=== PATIENT | female | born 1990 | race Asian ===

== ENCOUNTER 2019-12-23 09:58 | Inpatient (IN) | payer BC ==
[2019-12-25] MEDS ORDERED: EPHEDRINE 25 MG/5 ML SYRINGE ONE (11:33)
[2019-12-25] MEDS ORDERED: Lidocaine 2% MPF 10 ML AMP (For Epidural Use) ONE (11:33)
[2019-12-25] MEDS ORDERED: Bupivacaine PF 0.5% 30 ML VIAL ONE (11:33)
[2019-12-25] MEDS: Lactated Ringer's 1,000 ML IV SCH (20:17)
[2019-12-25 20:25] VITALS: BMI 35.3
[2019-12-25] MEDS ORDERED: Ibuprofen 800 MG TAB PO PRN (21:07)
[2019-12-25] MEDS ORDERED: Methylergonovine 0.2 MG/ML VIAL IM PRN (21:07)
[2019-12-25] MEDS ORDERED: Promethazine HCl 25 MG/ML VIAL IM PRN (21:07)
[2019-12-25] MEDS ORDERED: Carboprost 250 MCG/ML AMP IM PRN (21:07)
[2019-12-25] MEDS ORDERED: Ondansetron PF 4 MG/2 ML Vial IVP PRN (21:07)
[2019-12-25] MEDS ORDERED: Acetaminophen 500 MG TAB PO PRN (21:07)
[2019-12-25] MEDS ORDERED: NS / Oxytocin 40 units/1000ml 1,000 ML IV PRN (21:07)
[2019-12-25] MEDS ORDERED: Misoprostol 200 MCG TAB PR PRN (21:07)
[2019-12-25] MEDS ORDERED: Butorphanol Tartrate 1 MG/ML VIAL SLOW IVP PRN (21:07)
[2019-12-25] MEDS ORDERED: HYDROcodone/Acetaminophen 5/325 mg Tablet PO PRN (21:07)
[2019-12-25] MEDS ORDERED: Lidocaine 1% (PF) 30 ML VIAL SC PRN (21:07)
[2019-12-25] MEDS ORDERED: Diphenoxylate HCl/Atropine Tablet PO PRN (21:07)
[2019-12-25] MEDS ORDERED: hydrALAZINE 20 MG/ML VIAL SLOW IVP PRN (21:07)
[2019-12-25] MEDS ORDERED: Misoprostol 100 MCG TAB PO SCH (21:15)
[2019-12-25] MEDS ORDERED: NS w/ Oxytocin 10 units 500 ML IV SCH (21:15)
[2019-12-25 21:19] LABS: Hemoglobin 12.4 g/dL (12.0-16.0); Mean Corpuscular Hemoglobin 33.3 pg (27.0-31.0); Mean Platelet Volume 10.4 fL (7.4-10.4); Platelet Count 135 thou/uL (130-400); RBC Distribution Width 12.3 % (11.5-14.5); Red Blood Cell (RBC) Count 3.72 mill/uL (4.20-5.40); White Blood Cell (WBC) Count 10.5 thou/uL (4.8-10.8)
[2019-12-25 21:46] LABS: Syphilis Antibody Nonreactive (Nonreactive); Syphilis Antibody Index 0.02 S/CO (<1.00 Non-Reactive)
[2019-12-25] MEDS: Misoprostol 100 MCG TAB PO SCH (21:52)
[2019-12-25 22:06] LABS: HBSAg Index 0.42 S/CO (0-0.99); Hep B Surf Ag Non-Reactive S/CO (NonReactive)
[2019-12-26] MEDS: Lactated Ringer's 1,000 ML IV SCH ×4 (00:28→19:51)
[2019-12-26] MEDS: Misoprostol 100 MCG TAB PO SCH ×3 (01:20→09:51)
[2019-12-26] MEDS ORDERED: Fentanyl 4 mcg/Bup 0.1% Cadd 100 ML ONE ×2 (08:29→17:14)
[2019-12-26] MEDS ORDERED: Lactated Ringer's 500 ML IV PRN (09:38)
[2019-12-26] MEDS ORDERED: diphenhydrAMINE 50 MG/ML VIAL IVP PRN (09:38)
[2019-12-26] MEDS ORDERED: EPHEDRINE 25 MG/5 ML SYRINGE SLOW IVP PRN (09:38)
[2019-12-26] MEDS ORDERED: Naloxone HCl 0.4 mg/ml Vial IVP PRN ×2 (09:38)
[2019-12-26] MEDS ORDERED: Acetaminophen 325 MG TAB PO PRN (09:38)
[2019-12-26] MEDS ORDERED: Ondansetron PF 4 MG/2 ML Vial IVP PRN (09:38)
[2019-12-26] MEDS ORDERED: Promethazine HCl 25 MG/ML VIAL IM PRN (09:38)
[2019-12-26] MEDS ORDERED: Fentanyl 4 mcg/Bupivacaine 0.1% Cassette 100 ML EPIDURAL SCH (09:45)
[2019-12-26] MEDS ORDERED: Communication Order-Pharmacy FS SCH (09:45)
--- NOTE | 2019-12-26 13:53 | PDOC.LDHP ---
Labor and Delivery H&P Chief complaint: scheduled induction HPI: 29yo at 40w for elective IOL. s/p cytotec x 4. Some mild cramping. Good FM. Current gestational age (weeks): 40 Due date: 12/23/19 Dating criteria: last menstrual period Grav: 1 Para: 0 Current complications: none Abnormal US findings: No Past Medical History: denies Current medications: pre- vitamins Previous surgical history: none Allergies/Adverse Reactions: Allergies Allergy/AdvReac Type Severity Reaction Status Date / Time No Known Allergies Allergy Verified 12/25/19 21:31 Social history: other - Physical Exam Vital signs reviewed and normal: yes General: NAD Heart: RRR Lungs: CTAB Abdomen: gravid Extremeties: no edema FHT: category 1 [place] contractions every: 4min - Vaginal Exam cm dilated: 1 Effacement: 50% Station: -2 (cook balloon placed 80/80) - OB Labs Blood type: O RH: positive Antibody Screen: negative HIV: negative RPR: negative HEPSAg: negative 1 hour GCT: negative GBS: negative Urine drug screen: negative Rubella: immune - Assessment L&D Assessment: elective induction at term - Plan Plan: admit to L&D, cervical ripening, labor augmentation if indicated, informed consent obtained, anesthesia consult for pain management
--- NOTE | 2019-12-26 15:44 | PDOC.LDPN ---
Labor & Delivery Progress Note - Subjective Subjective: comfortable - Objective Vital signs reviewed and normal: yes General: NAD Uterine fundus: non tender Dilation: 4 Effacement: 50% Station: -2 FHT: category 1 [place] contractions every: 3min AROM: clear fluid Plan: pitocin for augmentation
[2019-12-27] MEDS ORDERED: Fentanyl 4 mcg/Bup 0.1% Cadd 100 ML ONE (01:29)
[2019-12-27] MEDS: Lactated Ringer's 1,000 ML IV SCH ×2 (03:54→19:30)
[2019-12-27] MEDS ORDERED: MORPHINE 5 MG/10 ML PF VIAL ONE (09:12)
[2019-12-27] MEDS ORDERED: Ondansetron PF 4 MG/2 ML Vial ONE (09:12)
[2019-12-27] MEDS ORDERED: Oxytocin 10 UNITS/ML VIAL ONE ×2 (09:12→10:17)
--- NOTE | 2019-12-27 09:17 | PDOC.LDPN ---
Labor & Delivery Progress Note - Subjective Subjective: comfortable - Objective Vital signs reviewed and normal: yes Abnormal vital signs: maternal tachycardia 120 General: NAD Uterine fundus: non tender Dilation: 5 Effacement: 50% Station: -2 FHT: category 2, absent or minimal variables [place] contractions every: 7min Resuscitative measures: maternal oxygen, maternal IV fluids -: Patient has not progressed much since cook balloon out and arom at approx 1700 yesterday despite adequate contractions. heart rate with min btbv however no repetitive decels and responding to D5 infusion with maternal oxygen. Dispo for PCS for arrest of dilation, NRFHT. Maternal temp 101.3 just now, will start triple antibiotics.
[2019-12-27] MEDS ORDERED: Azithromycin 500 MG VIAL ONE (09:20)
[2019-12-27] MEDS ORDERED: Bicitra 30 ML UDCUP PO SCH (09:30)
[2019-12-27] MEDS ORDERED: Azithromycin 500 MG in Sodium Chloride 0.9% 250 ML 250 ML IVPB SCH (09:30)
[2019-12-27] MEDS ORDERED: CEFAZOLIN 2 GM in Premix Bag 1 BAG IVPB SCH (09:30)
[2019-12-27] MEDS ORDERED: PHENYLEPHRINE-NS 100 MCG/ML 10 ML SYRINGE ONE (09:44)
[2019-12-27 10:08] LABS: Actual Bicarbonate (HCO3v) 21 mEq/L (22-28); Base Excess -5.2 mEq/L (-2.0 to +3.0); pH (Cord, venous) 7.31 (7.32-7.43)
[2019-12-27 10:14] LABS: Actual Bicarbonate (HCO3a) 21.4 mEq/L (22-28); Base Excess (BEa) -5.4 mEq/L (-2.0 to +3.0)
--- NOTE | 2019-12-27 10:23 | PDOC.OPDEL ---
OB Operative/Delivery Note Delivery Dr/Surgeon: Chapin Assist: Álvaro Pre-Delivery Diagnosis: arrest of dilation, non-reassuring tracing Procedure/Post Delivery Dx: primary low transverse CS Weeks gestation: 40 Anesthesia: epidural - Findings A Sex: female Weight: 6 lb 14 oz - 1 min: 9 - 5 min: 9 - Additional Findings/Plan Placenta delivered: spontaneous findings: low transverse hysterotomy without extension, normal uterus, normal tubes, normal ovaries Estimated blood loss: 600cc Compilations/Other Findings: NC x 1 Post delivery plan: routine recovery
[2019-12-27] MEDS ORDERED: L&D-Morphine 4 MG/ML VIAL SLOW IVP PRN (10:29)
[2019-12-27] MEDS ORDERED: HYDROmorphone 2 MG/ML VIAL SLOW IVP PRN (10:29)
[2019-12-27] MEDS ORDERED: Promethazine HCl 25 MG SUPP PR PRN (10:29)
[2019-12-27] MEDS ORDERED: diphenhydrAMINE 50 MG/ML VIAL IVP PRN (10:29)
[2019-12-27] MEDS ORDERED: Naloxone HCl 0.4 mg/ml Vial IVP PRN ×2 (10:29)
[2019-12-27] MEDS ORDERED: Meperidine HCl/PF 25 MG/ML VIAL SLOW IVP PRN (10:29)
[2019-12-27] MEDS ORDERED: Ondansetron HCl/PF 4 MG/2 ML Vial IVP PRN (10:29)
[2019-12-27] MEDS ORDERED: Naloxone HCl 0.4 mg/ml Vial IV PRN (10:29)
[2019-12-27] MEDS ORDERED: Ondansetron PF 4 MG/2 ML Vial IVP PRN ×2 (10:29→12:16)
[2019-12-27] MEDS ORDERED: Promethazine HCl 25 MG/ML VIAL IM PRN ×2 (10:29→12:16)
[2019-12-27] MEDS ORDERED: Communication Order-Pharmacy FS SCH (10:30)
[2019-12-27] MEDS ORDERED: Ketorolac Tromethamine 30 MG/ML VIAL IVP SCH (10:30)
--- NOTE | 2019-12-27 11:38 | OP ---
DATE OF PROCEDURE: 12/27/2019 ADDENDUM: I was present and scrubbed to assist the uncomplicated primary low-transverse with Dr. Anni Samson. Please see her note for full details. Job ID: [id number]
[2019-12-27] MEDS ORDERED: Ketorolac Tromethamine 30 MG/ML VIAL ONE (11:56)
[2019-12-27] MEDS ORDERED: Ampicillin 2 GM in Sodium Chloride 0.9% 100 ML IVPB SCH (12:00)
[2019-12-27] MEDS ORDERED: HYDROcodone/Acetaminophen 5/325 mg Tablet PO PRN (12:16)
[2019-12-27] MEDS ORDERED: hydrALAZINE 20 MG/ML VIAL SLOW IVP PRN (12:16)
[2019-12-27] MEDS ORDERED: Acetaminophen 325 MG TAB PO PRN (12:16)
[2019-12-27] MEDS ORDERED: Adacel (T-DAP) 0.5 ML SYRINGE IM ONE (12:16)
[2019-12-27] MEDS ORDERED: Simethicone Chewable 80 MG TAB PO PRN (12:16)
[2019-12-27] MEDS ORDERED: Bisacodyl 10 MG SUPP PR PRN (12:16)
[2019-12-27] MEDS ORDERED: Gentamicin Sulfate 300 MG in Sodium Chloride 0.9% 100 ML IVPB SCH (13:00)
[2019-12-27] MEDS ORDERED: NS / Oxytocin 40 units/1000ml 1,000 ML ONE (13:44)
[2019-12-27] MEDS: Clindamycin/D5W 900 MG in Premix Bag 1 BAG IVPB SCH ×2 (13:52→22:00)
[2019-12-27] MEDS: Lanolin Ointment 7 GM TUBE TOP PRN (13:58)
[2019-12-27] MEDS: Ibuprofen 800 MG TAB PO SCH ×2 (14:24→22:00)
[2019-12-27] MEDS: Misoprostol 100 MCG TAB PO SCH (14:25)
[2019-12-27] MEDS: Gentamicin Sulfate 300 MG in Sodium Chloride 0.9% 100 ML IVPB SCH (15:08)
[2019-12-27] MEDS: Ampicillin 2 GM in Sodium Chloride 0.9% 100 ML IVPB SCH ×2 (16:30→22:00)
[2019-12-27] MEDS ORDERED: Lactated Ringer's 1,000 ML IV SCH (17:30)
[2019-12-27 17:35] LABS: Hemoglobin 10.9 g/dL (12.0-16.0)
[2019-12-27] MEDS: Ketorolac Tromethamine 30 MG/ML VIAL IVP PRN (21:58)
[2019-12-27] MEDS: Docusate Calcium (SURFAK) 240 MG CAP PO SCH (21:59)
[2019-12-27] MEDS: Ferrous Sulfate 325 MG TAB PO SCH (21:59)
[2019-12-28] MEDS: Clindamycin/D5W 900 MG in Premix Bag 1 BAG IVPB SCH ×3 (04:11→21:48)
[2019-12-28] MEDS: Lactated Ringer's 1,000 ML IV SCH ×2 (04:11→11:23)
[2019-12-28] MEDS: Ampicillin 2 GM in Sodium Chloride 0.9% 100 ML IVPB SCH ×4 (04:11→23:15)
[2019-12-28] MEDS: Ketorolac Tromethamine 30 MG/ML VIAL IVP PRN (04:12)
[2019-12-28] MEDS: Ibuprofen 800 MG TAB PO SCH ×3 (04:13→20:00)
[2019-12-28 05:51] LABS: Hemoglobin 10.2 g/dL (12.0-16.0); Mean Corpuscular HGB CONC 32.5 g/dL (32.0-36.0); Mean Corpuscular Hemoglobin 31.6 pg (27.0-31.0); Mean Corpuscular Volume 97.2 fL (78.0-98.0); Mean Platelet Volume 10.4 fL (7.4-10.4); Platelet Count 118 thou/uL (130-400); RBC Distribution Width 12.5 % (11.5-14.5); Red Blood Cell (RBC) Count 3.22 mill/uL (4.20-5.40); White Blood Cell (WBC) Count 19.1 thou/uL (4.8-10.8)
[2019-12-28] MEDS ORDERED: Sodium Chloride 0.9% 10 ML ONE (06:21)
[2019-12-28] MEDS: Ferrous Sulfate 325 MG TAB PO SCH ×2 (08:36→23:19)
[2019-12-28] MEDS: HYDROcodone/Acetaminophen 5/325 mg Tablet PO PRN ×2 (08:47→15:05)
[2019-12-28] MEDS: Docusate Calcium (SURFAK) 240 MG CAP PO SCH ×2 (08:47→20:00)
[2019-12-28] MEDS: Prenatal Vitamin 1 TAB PO SCH (08:47)
--- NOTE | 2019-12-28 12:47 | PDOC.PP ---
Post Progress Note Post Day #: 1 PO intake tolerated: yes Flatus: yes Ambulation: yes Vital Signs (12 hours) Temp Pulse Resp BP Pulse Ox 12/28/19 11:32 98.1 F 110 H 20 107/61 97 12/28/19 07:45 95 12/28/19 07:33 98.9 F 99 20 99/65 95 12/28/19 04:00 98.6 F 105 H 18 99/58 L Weight Weight 181 lb - Physical Examination General: NAD Respiratory: non-labored breathing Abdominal: no distention, appropriately TTP Fundus firm & at: umb Skin: no rash Neurological: no gross focal deficits Psychiatric: normal affect Result Diagrams: 12/28/19 05:10 Additional Labs: Post Labs Blood Type O POSITIVE 12/25/19 21:34 Hep Bs Antigen Non-Reactive S/CO (NonReactive) 12/25/19 20:25 - Assessment/Plan POD1 s/p PCS for FTP at 5cm VSSAF, yesterday had some asx hypotension and tachycardia that resolved with IVF bolus Hgb 10.2 postop blood loss anemia. No sx, cont Iron and PNV Routine postop advances Rh pos RImm Cont postop care
[2019-12-28] MEDS: Gentamicin Sulfate 300 MG in Sodium Chloride 0.9% 100 ML IVPB SCH (14:56)
[2019-12-28] MEDS: Lanolin Ointment 7 GM TUBE TOP PRN (21:49)
[2019-12-29] MEDS: Clindamycin/D5W 900 MG in Premix Bag 1 BAG IVPB SCH (04:57)
[2019-12-29] MEDS: Ibuprofen 800 MG TAB PO SCH ×3 (04:58→21:17)
[2019-12-29] MEDS: Ampicillin 2 GM in Sodium Chloride 0.9% 100 ML IVPB SCH (06:20)
[2019-12-29] MEDS: Prenatal Vitamin 1 TAB PO SCH (08:57)
[2019-12-29] MEDS: Docusate Calcium (SURFAK) 240 MG CAP PO SCH ×2 (08:57→21:17)
[2019-12-29] MEDS: Ferrous Sulfate 325 MG TAB PO SCH ×2 (08:58→21:19)
--- NOTE | 2019-12-29 09:02 | PDOC.PP ---
Post Progress Note Post Day #: 2 Subjective: Patient is doing well s/p PCS for failure to progress. She has been afebrile. When she gets up, she has more pain and would like a support belt. PO intake tolerated: yes Flatus: yes Ambulation: yes Vital Signs (12 hours) Temp Pulse Resp BP Pulse Ox 12/29/19 07:19 99.0 F 93 16 109/74 99 12/29/19 04:45 98.0 F 81 18 105/66 12/29/19 00:25 98.0 F 86 18 96/59 L Weight Weight 181 lb - Physical Examination General: NAD Respiratory: non-labored breathing Abdominal: lochia (minimal), appropriately TTP Fundus firm & at: Umb -2 Extremities: negative homans (B) Skin: CS incision dry & intact Neurological: no gross focal deficits Psychiatric: A&Ox3, normal affect Result Diagrams: 12/28/19 05:10 Additional Labs: Post Labs Blood Type O POSITIVE 12/25/19 21:34 Hep Bs Antigen Non-Reactive S/CO (NonReactive) 12/25/19 20:25 (1) delivery delivered Code(s): O82 - ENCOUNTER FOR DELIVERY WITHOUT INDICATION Status: Acute (2) Failure to progress in labor Code(s): O62.2 - OTHER UTERINE INERTIA Status: Acute - Assessment/Plan A: NML p/o Day 2 exam. Incision is intact and dry P: ABX discontinued this am. ABD binder given for support Ambulation 3 times in the [place] today. Evaluated for Discharge home tomorrow. Scheduled 10 day post op visit with Christiana KANG.
--- NOTE | 2019-12-29 14:27 | OP ---
DATE OF PROCEDURE: 12/27/2019 PREOPERATIVE DIAGNOSES: 1. Intrauterine at 40 weeks and 4 days. 2. Failure to progress at 5 cm. 3. Chorioamnionitis. 4. Non-reassuring heart tones. POSTOPERATIVE DIAGNOSES: 1. Intrauterine at 40 weeks and 4 days. 2. Failure to progress at 5 cm. 3. Chorioamnionitis. 4. Non-reassuring heart tones. PROCEDURE PERFORMED: Primary low transverse section via Pfannenstiel skin incision. ANESTHESIA: Epidural. ORCHARD HAND SURGEON: Brittny Rea MD ESTIMATED BLOOD LOSS: 600 mL. COMPLICATIONS: None. DRAINS: Olivera catheter. PATHOLOGY: None. FINDINGS: Female infant, cephalic presentation, foul-smelling amniotic fluid. Apgars and weight are pending. Cord ABG is 7.27, pCO2 47.5, and base excess -5.4. Hysterotomy without extension. Normal uterus, ovaries, and tubes bilaterally. DESCRIPTION OF PROCEDURE: The patient was taken to the operating room, where epidural anesthesia was found to be adequate. The patient was prepped and draped in a sterile fashion in a dorsal supine position with a leftward tilt. After ensuring adequacy of anesthesia, a Pfannenstiel skin incision was made and carried down to the underlying subcutaneous tissue with a knife. The fascia was nicked in the midline with a knife and carried laterally with Guzman scissors. The superior aspect of the fascia was tented with 2 Kochers and dissected off the rectus with the Guzman scissors. The inferior aspect of the fascia was tented with 2 Kochers and dissected off the rectus down to the pubic symphysis with the Guzman. The rectus was bluntly divided in the midline. Peritoneum was bluntly entered into and manually retracted. The Devne O retractor was placed and the lower uterine segment was incised in a transverse fashion and extended with a Lewis maneuver. The 's head was brought to the hysterotomy and delivered atraumatically followed by the body. Cord was clamped, the infant was vigorous, and handed to awaiting edie team. Cord gas and cord blood were obtained, and the placenta was allowed to spontaneously deliver. The uterus was exteriorized, cleared of all clots and debris. The posterior cul-de-sac was left out. The uterus was placed back into the abdomen. The hysterotomy was repaired with a #1 Monocryl in a running locking fashion with excellent hemostasis noted. Copious irrigation of the pelvis was performed in pericolic gutters and suctioned. The hysterotomy was again noted to be hemostatic. The Deven O retractor was removed out of the abdomen. The rectus muscles were noted to be hemostatic. The fascia was reapproximated with 0 PDS x2 sutures with excellent reapproximation. The subcutaneous tissue was irrigated and cauterized of any bleeders and reapproximated with a 2-0 plain gut in a running fashion. The skin was closed with 4-0 Monocryl in a subcuticular fashion. Dermabond was applied. The patient tolerated the procedure well. Sponge and needle counts correct x2. The patient was taken to recovery room in stable condition. The patient received Ancef 2 g and azithromycin 500 mg prior to the procedure. Job ID: [id number]
[2019-12-29] MEDS: HYDROcodone/Acetaminophen 5/325 mg Tablet PO PRN (18:11)
[2019-12-30] MEDS: Ibuprofen 800 MG TAB PO SCH ×2 (04:53→14:07)
[2019-12-30 08:02] VITALS: BP 102/66; TEMP 98.3
[2019-12-30] MEDS: Prenatal Vitamin 1 TAB PO SCH (09:45)
[2019-12-30] MEDS: Docusate Calcium (SURFAK) 240 MG CAP PO SCH (09:46)
[2019-12-30] MEDS: Ferrous Sulfate 325 MG TAB PO SCH (09:46)
[2019-12-30] MEDS: Lanolin Ointment 7 GM TUBE TOP PRN (14:09)
== END 2019-12-30 17:20 | disposition home or self-care (01) | DRG 786 ==
LOC: EDSTATUS 13:36 → L&D 12-25 19:43 → 3SW 12-27 12:52
PROVIDERS: ADMIT Student in an Organized Health Care Education/Training Program; ATTEND Student in an Organized Health Care Education/Training Program
PROC: 10907ZC Drainage of Amniotic Fluid, Therapeutic from Products of Conception, Via Natural or Artificial Opening (ICD-10-PCS; 2019-12-25)
PROC: 0U7C7ZZ Dilation of Cervix, Via Natural or Artificial Opening (ICD-10-PCS; 2019-12-25)
PROC: 10D00Z1 Extraction of Products of Conception, Low, Open Approach (ICD-10-PCS; principal; 2019-12-27)
DX: O76 Abnormality in fetal heart rate and rhythm complicating labor and delivery (principal); O41.1230 Chorioamnionitis, third trimester, not applicable or unspecified; D62 Acute posthemorrhagic anemia; O62.0 Primary inadequate contractions; O90.81 Anemia of the puerperium; Z3A.40 40 weeks gestation of pregnancy; Z37.0 Single live birth
CPT/HCPCS: 36415; 51702; 76815; 82805; 85014; 85018; 85027; 86780; 86850; 86900; 86901; 87340; C1726; J0290; J0456; J0690; J1580; J1885; J2001; J2274; J2405; J2590; J3490; J7050; S0020